=== PATIENT | female | born 2000 | race Caucasian/White ===

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

== ENCOUNTER 2020-02-03 18:45 | Emergency (ER) | payer MEDICAID ==
[~2020-02-03] VITALS: Ht 157.5 cm; Wt 52.6 kg
[2020-02-03 18:48] VITALS: BP 138/78; Ht 157.5 cm; Wt 52.6 kg
== END 2020-02-03 19:32 | disposition home or self-care (01) ==
LOC: ED 18:45
DX: H92.03 Otalgia, bilateral (principal)

== ENCOUNTER 2020-03-23 13:02 | Emergency (ER) | payer MEDICAID ==
[~2020-03-23] VITALS: Ht 157.5 cm; Wt 50.3 kg
[2020-03-23 13:10] VITALS: Ht 157.5 cm; Wt 50.3 kg
[2020-03-23 14:17] VITALS: BP 130/87
== END 2020-03-23 14:17 | disposition home or self-care (01) ==
LOC: ED 13:02
DX: F41.9 Anxiety disorder, unspecified (principal); G47.00 Insomnia, unspecified; K21.9 Gastro-esophageal reflux disease without esophagitis